=== PATIENT | female | born 1945 | race Caucasian/White ===

== ENCOUNTER 2021-04-13 20:54 | Outpatient (REF) | payer MEDICARE, BC, SELFPAY ==
[2021-04-13 22:20] LABS: Anion Gap 7.4 mmol/L (3-11); BUN 23 mg/dL (7-18); CO2 30.6 mmol/L (21.0-32.0); CREATININE 1.1 mg/dL (0.55-1.02); Calcium 9.6 mg/dL (8.5-10.1); Chloride 105 mmol/L (98-107); Estimated GFR 48.29 (mL/min/1.73m2); Glucose 110 mg/dL (74-106); Potassium 3.8 mmol/L (3.5-5.1); Sodium 143 mmol/L (136-145)
== END 2021-04-13 20:55 | disposition home or self-care (01) ==
LOC: NCHCN 20:54
PROVIDERS: Visit Provider Nurse Practitioner Community Health
DX: I10 Essential (primary) hypertension (principal)
CPT/HCPCS: 80048

== ENCOUNTER 2021-05-15 13:07 | Outpatient (REF) | payer MEDICARE, BC, SELFPAY ==
[2021-05-15 16:32] LABS: Anion Gap 6.1 mmol/L (3-11); BUN 20 mg/dL (7-18); CO2 30.9 mmol/L (21.0-32.0); CREATININE 0.8 mg/dL (0.55-1.02); Calcium 9.2 mg/dL (8.5-10.1); Chloride 106 mmol/L (98-107); Glucose 99 mg/dL (74-106); Potassium 3.9 mmol/L (3.5-5.1); Sodium 143 mmol/L (136-145)
== END 2021-05-15 13:08 | disposition home or self-care (01) ==
LOC: NCHCN 13:07
PROVIDERS: Visit Provider Nurse Practitioner Community Health
DX: Z12.83 Encounter for screening for malignant neoplasm of skin (principal)
CPT/HCPCS: 80048